=== PATIENT | male | born 1965 | race Caucasian/White ===

== ENCOUNTER 2017-10-20 13:53 | Emergency (ER) | payer OTHER ==
[~2017-10-20] VITALS: Ht 172.7 cm; Wt 72.6 kg
[~2017-10-20 13:53] MED LIST: DEPAKOTE500 M1; PERCOCET 325 MG1 TA5 PO; ZOLOFT100 MG
[2017-10-20] MEDS ORDERED: MEDROL DOSEPAK4 MG PO (14:15)
[2017-10-21] MEDS ORDERED: ASPIRIN ADULT L81 M1 PO (20:29)
== END 2017-10-20 15:12 | disposition home or self-care (01) ==
LOC: ED 13:53
DX: M54.12 Radiculopathy, cervical region (principal); F17.200 Nicotine dependence, unspecified, uncomplicated

== ENCOUNTER 2017-10-21 16:46 | Emergency (ER) | payer OTHER ==
[~2017-10-21] VITALS: Wt 72.6 kg
[~2017-10-21 16:46] MED LIST changes: +MEDROL DOSEPAK4 MG PO
[2017-10-21 18:38] LABS: BASO % 0.1 % (0.0-1.0); HEMATOCRIT 46.1 % (42.0-52.0); HEMOGLOBIN 15.3 g/dl (14.0-18.0); LYMPH # 1.2 10*3/uL (1.3-4.4); LYMPH % 9.2 % (27.0-41.0); MEAN CELL VOLUME 93.3 fl (80.0-94.0); MEAN CORPUSCULAR HGB CONC 33.2 g/dl (33.0-37.0); MONO # 0.6 10*3/uL (0.1-1.0); MONO % 4.6 % (3.0-9.0); NEUT # 11.6 10*3/uL (2.3-7.9); NEUT % 85.7 % (47.0-73.0); PLATELET COUNT AUTOMATED 249 10*3/uL (130-400); RED BLOOD COUNT 4.94 10*6/uL (4.50-5.90); RED CELL DISTRI WIDTH 13.7 % (0-14.5); WHITE BLOOD COUNT 13.5 10*3/uL (4.8-10.8)
[2017-10-21 19:00] LABS: ALBUMIN 3.7 gm/dl (3.1-4.5); ALKALINE PHOSPHATASE 89 U/L (45-117); BUN 16 mg/dl (7-24); CHLORIDE 107 mmol/L (98-107); CREATININE 1.13 mg/dL (0.70-1.30); POTASSIUM 3.9 mmol/L (3.5-5.1); SGOT/AST 19 IU/L (3-35); SGPT/ALT 34 U/L (12-78); SODIUM 140 mmol/L (136-145); TOTAL PROTEIN 8.7 gm/dL (6.4-8.2)
[2017-10-21 19:01] LABS: TROPONIN I < 0.015 ng/ml (<0.045)
[2017-10-21] MEDS ORDERED: ASPIRIN ADULT L81 M1 PO (20:29)
== END 2017-10-21 21:41 | disposition left against medical advice (07) ==
LOC: ED 16:46
PROVIDERS: Physician Assistant
DX: R53.1 Weakness (principal); F17.200 Nicotine dependence, unspecified, uncomplicated; F10.10 Alcohol abuse, uncomplicated

== ENCOUNTER 2017-10-22 09:25 | Emergency (ER) | payer OTHER ==
[~2017-10-22] VITALS: Ht 172.7 cm; Wt 75.3 kg
[~2017-10-22 09:25] MED LIST changes: +ASPIRIN ADULT L81 M1 PO
== END 2017-10-22 11:02 | disposition short-term general hospital (02) ==
LOC: ED 09:25
DX: M62.81 Muscle weakness (generalized) (principal); R20.2 Paresthesia of skin; Z79.899 Other long term (current) drug therapy; Z79.82 Long term (current) use of aspirin

== ENCOUNTER 2020-04-29 04:48 | Emergency (ER) | payer OTHER ==
[~2020-04-29] VITALS: Ht 172.7 cm; Wt 72.6 kg
== END 2020-04-29 07:19 | disposition home or self-care (01) ==
LOC: ED 04:48
DX: S20.20XA Contusion of thorax, unspecified, initial encounter (principal); F41.9 Anxiety disorder, unspecified; F32.9 Major depressive disorder, single episode, unspecified; Z79.899 Other long term (current) drug therapy; W01.0XXA Fall on same level from slipping, tripping and stumbling without subsequent striking against object, initial encounter; Y93.89 Activity, other specified; Y92.89 Other specified places as the place of occurrence of the external cause; Y99.8 Other external cause status

== ENCOUNTER → 2020-09-25 | Outpatient (CLI) | payer OTHER | END | disposition home or self-care (01) | LOC: US 00:16 | PROVIDERS: ATTEND Nurse Practitioner Family | DX: I65.23 Occlusion and stenosis of bilateral carotid arteries (principal); I63.89 Other cerebral infarction ==

== ENCOUNTER → 2021-09-19 | Outpatient (CLI) | payer OTHER | END | disposition home or self-care (01) | LOC: US 14:54 → CT 16:00 | PROVIDERS: ATTEND Nurse Practitioner Family | DX: I65.23 Occlusion and stenosis of bilateral carotid arteries (principal); J43.9 Emphysema, unspecified; Z72.0 Tobacco use ==

== ENCOUNTER → 2021-11-13 | Outpatient (CLI) | payer OTHER | END | disposition home or self-care (01) | LOC: CARD 12:28 | PROVIDERS: ATTEND Nurse Practitioner Family | DX: R01.1 Cardiac murmur, unspecified (principal) ==

== ENCOUNTER → 2022-11-13 | Outpatient (CLI) | payer OTHER | END | disposition home or self-care (01) | LOC: US 13:00 | PROVIDERS: ATTEND Internal Medicine | DX: I65.23 Occlusion and stenosis of bilateral carotid arteries (principal); R59.0 Localized enlarged lymph nodes; I63.9 Cerebral infarction, unspecified ==